=== PATIENT | male | born 2005 | race Two or more races ===

== ENCOUNTER 2025-01-24 14:48 | Outpatient (CLI) | payer OTHER | END 2025-01-24 14:59 | disposition home or self-care (01) | LOC: LAB 14:48 | PROVIDERS: ATTEND Emergency Medicine Pediatric Emergency Medicine | DX: L02.91 Cutaneous abscess, unspecified (principal); L03.116 Cellulitis of left lower limb ==

== ENCOUNTER → 2025-01-24 | Emergency (ER) | payer OTHER ==
[~2025-01-24] VITALS: Ht 157.5 cm; Wt 65.8 kg
[~2025-01-24] MED LIST: CEFTRIAXONE SODIUM 2,000 MG VIAL IM SCH
== END | disposition home or self-care (01) ==
LOC: ER 11:42 → EMR PED 12:30
DX: L08.9 Local infection of the skin and subcutaneous tissue, unspecified (principal); L03.90 Cellulitis, unspecified